=== PATIENT | female | born 1975 | race Caucasian/White ===

== ENCOUNTER 2016-09-02 04:20 | Day surgery (SDC) | payer SELFPAY ==
[2016-09-02] MEDS ORDERED: HYDROMORPHONE HCL 1 MG/ML SYRINGE ONE ×2 (07:54→08:44)
[2016-09-02] MEDS ORDERED: ONDANSETRON 4 MG/2ML 2 ML VIAL ONE (07:54)
[2016-09-02] MEDS ORDERED: LACTATED RINGERS 1,000 ML ONE ×2 (08:15→11:52)
[2016-09-02] MEDS ORDERED: LORAZEPAM 2 MG/ML 1ML SDV ONE (08:45)
[2016-09-02] MEDS ORDERED: LIDOCAINE 2% ONE (09:28)
[2016-09-02] MEDS ORDERED: PROPOFOL 20 ML IV ONE ×2 (09:41→10:37)
[2016-09-02] MEDS ORDERED: LIDOCAINE 2% (PRES FREE) 5 ML VIAL ONE (09:41)
[2016-09-02] MEDS ORDERED: FENTANYL 100 MCG/2 ML VIAL ONE (09:41)
[2016-09-02] MEDS ORDERED: MIDAZOLAM HCL 1 MG/ML 2ML VIAL ONE (09:41)
[2016-09-02] MEDS ORDERED: FENTANYL 100 MCG/2 ML VIAL IV PRN (09:58)
[2016-09-02] MEDS ORDERED: ATROPINE SULFATE 0.4 MG/1 ML VIAL IV PRN (09:58)
[2016-09-02] MEDS ORDERED: ONDANSETRON 4 MG/2ML 2 ML VIAL IV PRN ×2 (09:58→11:12)
[2016-09-02] MEDS ORDERED: PROMETHAZINE HCL 25 MG/ML VIAL IM PRN (09:58)
[2016-09-02] MEDS ORDERED: NALOXONE HCL 0.4 MG/ML VIAL IV PRN (09:58)
[2016-09-02] MEDS ORDERED: LACTATED RINGERS 1,000 ML IV SCH (10:00)
[2016-09-02] MEDS ORDERED: PUMP TUBING ONE (10:25)
[2016-09-02] MEDS ORDERED: VANCOMYCIN HCL 1.25 G in SODIUM CHLORIDE 0.9% 250 ML IV ONE (10:30)
[2016-09-02] MEDS ORDERED: DIPHENHYDRAMINE HCL 50 MG/1 ML VIAL ONE (11:01)
[2016-09-02] MEDS ORDERED: CLINDAMYCIN 900 MG PREMIX 50 ML IV ONE (11:02)
--- NOTE | 2016-09-02 11:02 | PCMBPN ---
Brief Post Op Note: Date of Procedure: 09/02/16 Preoperative Diagnosis: RD1 abscess Postoperative Diagnosis: RD1 abscess with IP joint involvement RD1 extensor tendon laceration Procedure: RD1 I/D IP joint, extensor tendon repair Surgeon: Don Abreu MD Assist:Sammie (ANGELIQUE) Anesthesia: local/MAC (meseret) Findings: extensor tendon laceration with IP joint involvement and gross pus Condition: stable to PAR Complications: none IV Fluids: per anesthesia Estimated Blood Loss: minimal Tourniquet Time: none Specimens: 1x culture/gram stain Drains: none
[2016-09-02] MEDS ORDERED: DIPHENHYDRAMINE HCL 50 MG/1 ML VIAL IV PRN (11:12)
[2016-09-02] MEDS ORDERED: OXYCODONE HCL 5 MG TABLET PO PRN (11:12)
[2016-09-02] MEDS ORDERED: CLINDAMYCIN 900 MG PREMIX 900 MG in Premix (D5W) 50 ml 1 EACH IV ONE (11:12)
[2016-09-02] MEDS ORDERED: HYDROMORPHONE HCL 1 MG/ML SYRINGE IV PRN (11:12)
[2016-09-02] MEDS ORDERED: ACETAMINOPHEN 325 MG TABLET PO PRN (11:12)
[2016-09-02] MEDS ORDERED: KETOROLAC TROMETHAMINE 30 MG/ML 1 ML VIAL IV PRN (11:12)
[2016-09-02] MEDS ORDERED: SODIUM CHLORIDE 0.9% 1,000 ML IV SCH (11:15)
[2016-09-02 11:40] LABS: ABSOLUTE NEUTROPHIL COUNT 7.9 K/mm3 (1.8-7.7); BASO % 0.3 % (0.2-1.0); EOS # 0.2 (0.0-0.5); EOS % 1.8 % (0.9-2.9); HEMOGLOBIN 13.6 gm/l (12.0-16.0); IMM NEUT # 0.1 K/mm3 (0-0.2); IMM NEUT% 0.6 % (0-1); LYMPH # 2.5 (1.0-4.8); LYMPH % 21.1 % (15-45); MEAN CELL VOLUME 96.7 fl (81.0-99.0); MEAN CORPUSCULAR HEMOGLOBIN 32.1 pg (27.0-31.0); MEAN CORPUSCULAR HGB CONC 33.2 g/dl (33.0-37.0); MEAN PLATELET VOLUME 11.6 fl (7.4-10.4); MONO # 0.9 (0.0-0.8); MONO % 8.1 % (4-12); NEUT % 68.1 % (43-75); PLATELET COUNT 285 K/mm3 (130-400)
[2016-09-02] MEDS ORDERED: OXYCODONE HCL 5 MG TABLET ONE (12:14)
[2016-09-02] MEDS ORDERED: HYDROMORPHONE HCL 0.5 MG/0.5 ML SYRINGE ONE (12:46)
--- NOTE | 2016-09-03 10:12 | OP ---
VIANCA CROCKER [id number] : 1975 DATE OF SURGERY: September 02, 2016 PREOPERATIVE DIAGNOSIS: Right thumb abscess, rule out IP joint involvement. POSTOPERATIVE DIAGNOSIS: 1. Right thumb abscess with involvement of IP joint. 2. Subacute extensor tendon laceration, right thumb. PROCEDURE: 1. Right thumb I&D with arthrotomy. 2. Primary repair extensor tendon, right thumb. SURGEON: Don Abreu M.D. INTERNET SALES REPRESENTATIVE: Sammie BLAKELY) ESTIMATED BLOOD LOSS: Minimal ANESTHESIA: Local/MAC per Berenice TOURNIQUET TIME: Not used FLUIDS: IV fluid placed per anesthesia. DRAINS: None COMPLICATIONS: None SPECIMENS: x1 for Gram stain and culture INDICATIONS: Patient is a 41-year-old female with a 2 week history of a traumatic laceration dorsum IP joint thumb from a knife. Over the last 24 hours it has gotten significantly swollen, erythematous and painful. She presented to the ER. For additional details please refer to my orthopedic consultation from that visit. Recommendation to proceed with urgent I&D. PAR conference held, questions and concerns addressed and informed consent obtained. PROCEDURAL DESCRIPTION: Patient was taken to the OR, transferred directly from the ED. She was placed supine on the OR table. Tourniquet was applied, but not used. The upper extremity was prepped and draped out in the usual sterile fashion. Antibiotics were held until after cultures were obtained and then 1.25 grams of Vancomycin were started on a pump. Loop magnification was used during the procedure to help facilitate dissection. After sterile prep and drape I extended the oblique incision over the dorsum and IP joint of the limb, distal radial on the distal ulnar and proximal radial aspect. The tissue was very edematous. I bluntly dissected deep. There was obvious traumatic laceration into the IP joint. There was complete disruption of the extensor mechanism that was mildly retracted. Some fibrinous debris was taken as well as a swab for culture and Gram stain. We then irrigated with 2 liters of saline using gravity lavage. The tissue planes were more completely delineated in order to define the extensor fernandez and dorsal capsule. This was closed with a 4-0 monofilament Gortex suture with a standard tendon stitch. The IP joint was held in extension during the repair. We then again irrigated and closed in a single layer with interrupted 4-0 nylon. A sterile dressing was applied followed by a well padded thumb spica splint. The patient was transferred to her hospital bed and sent to post anesthesia recovery in stable condition. Sponge, instrument and needle counts were correct. DANYEL/mrw CC: [facility]
--- NOTE | 2016-09-04 10:47 | CONS ---
DATE OF CONSULTATION: September 02, 2016 VIANCA CROCKER : 1975 [id number] HISTORY: 41-year-old, RHD female who, approximately 2 weeks, states that she "accidentally cut herself" while cleaning her knife. She did local wound care, felt things were doing quite well, improving until the last 24 hours when she has had increased pain and swelling. She presented to [facility] ER for evaluation. She denies any systemic symptomatology. ER physician evaluated her and then contacted me after attempting a local I&D that was unsuccessful. No recent illnesses. She smokes approximately 1/2 pack of cigarettes a day. She takes no prescription medications. She does have an allergy to Sulfa. PAST MEDICAL HISTORY: ALLERGIES: Drug sensitivity to Sulfa. MEDICATIONS: None SIGNIFICANT MEDICAL PROBLEMS: None PAST SURGICAL HISTORY: None recent SOCIAL HISTORY: Patient works at [employer]. She presents with her significant other. Unclear whether she has a local PCP. PHYSICAL EXAMINATION: Patient is a well-developed, well-nourished female obviously uncomfortable, but otherwise in no acute distress, normal appearing mood and affect. She answers questions appropriately. Physical exam of the right hand and wrist shows significant swelling about the thumb dorsally with erythema. There is an oblique laceration directly over the IP joint. The thumb is held in position of approximately 30 degrees of flexion. She is able to lightly flicker flex and extend. She does have MCP motion that is only mildly uncomfortable. She is tender over the dorsum of the thumb, fairly diffuse, NT over the thenar eminence. There is no significant pain with active and passive wrist motion. The remainder of the hand and wrist exam is normal. LABS: Pending IMPRESSION: Subacute laceration, right thumb, worrisome for involvement of the IP joint. Uncertain status of tendon. PLAN: I talked to the patient regarding my thoughts and findings. Recommendation to proceed with urgent I&D and exploration. PAR conference was held, questions and concerns addressed and informed consent obtained. We discussed specifically the possibility of wound problems or continuation of infection, possibility despite surgery of some loss of thumb function chronically. We will hold off on cultures until the OR and hold off on antibiotics until that time as well. DANYEL:della CC: [facility]
== END 2016-09-02 13:24 | disposition home or self-care (01) ==
LOC: ED 04:20 → UNDOADMOB 07:34 → MS 07:34 → SDC 07:52
PROVIDERS: ATTEND Family Medicine
PROC: 0R9W0ZZ Drainage of Right Finger Phalangeal Joint, Open Approach (ICD-10-PCS; principal; 2016-09-02)
PROC: 0LQ70ZZ Repair Right Hand Tendon, Open Approach (ICD-10-PCS; 2016-09-02)
DX: S66.221A Laceration of extensor muscle, fascia and tendon of right thumb at wrist and hand level, initial encounter (principal); S61.011A Laceration without foreign body of right thumb without damage to nail, initial encounter; L08.9 Local infection of the skin and subcutaneous tissue, unspecified; W26.0XXA Contact with knife, initial encounter; F17.210 Nicotine dependence, cigarettes, uncomplicated; Z88.2 Allergy status to sulfonamides
CPT/HCPCS: 85025; 87070 ×2; 80048; 87205; 87186; 96375 ×2; 96376; 99284; 10060 ×2; 96374; 99285; 26080; 26412; A6453; J2060; J1200; J1170 ×3; J3010; A9270; J1885; J3370; J2250; J2001; J2405; J7120 ×2; J7050; J7030